=== PATIENT | male | born 1990 ===

== ENCOUNTER 2019-05-14 13:19 | Observation (INO) | payer SELFPAY ==
[2019-05-14] MEDS ORDERED: Nitroglycerin 0.4 MG TAB (25 Tab Bottle) ONE (13:55)
[2019-05-14] MEDS: Morphine 4 MG/ML VIAL ONE (13:57)
[2019-05-14] MEDS ORDERED: Metoprolol Tartrate 5 MG/5 ML VIAL ONE (14:11)
[2019-05-14] MEDS ORDERED: Morphine 2 MG/ML SYRINGE SLOW IVP SCH (14:15)
[2019-05-14] MEDS ORDERED: Iopamidol-370 76% 500 ML 1 ML ONE (14:29)
[2019-05-14] MEDS ORDERED: Labetalol HCl 100 MG/20 ML VIAL SLOW IVP SCH (14:30)
[2019-05-14 15:37] VITALS: BMI 27.5
[2019-05-14] MEDS ORDERED: Carvedilol 25 MG TAB PO SCH (16:45)
[2019-05-14] MEDS ORDERED: Ketorolac Tromethamine 30 MG/ML VIAL IVP SCH ×2 (17:00→18:30)
[2019-05-14] MEDS ORDERED: Ibuprofen 800 MG TAB PO SCH (18:30)
[2019-05-14 18:52] LABS: Amphetamine Not Detected (NotDetected); Barbiturates Screen Not Detected (NotDetected); Benzodiazepine Screen Not Detected (NotDetected); Cocaine Metabolite Screen Not Detected (NotDetected); Medtox Control Line Valid? VALID (VALID); Medtox Reader # READER 1; Methadone Not Detected (NotDetected); Methamphetamine Not Detected (NotDetected); Opiate Screen Detected (NotDetected); Oxycodone Screen Not Detected (NotDetected); Phencyclidine (PCP) Not Detected (NotDetected); THC/Cannabinoid Screen Not Detected (NotDetected); Tricyclic Screen Not Detected (NotDetected)
--- NOTE | 2019-05-14 18:58 | CON ---
DATE OF CONSULTATION: REASON FOR CONSULTATION: Chest pain and abnormal EKG. HISTORY OF PRESENT ILLNESS: Mr. Dalton is a pleasant 29-year-old gentleman with no significant past medical history who recently states he developed chest pain. This began at 8:00 this morning. It has been unremitting. The pain is worse with sitting up, taking a deep breath, moving to his left side. No other ameliorating, exacerbating, or precipitating factors present. His EKG was felt to be abnormal, but more consistent with repolarization changes. HOME MEDICATIONS: Naprosyn. ALLERGIES: NONE. REVIEW OF SYSTEMS: Ten-point review of systems reviewed, as above, otherwise negative. PHYSICAL EXAMINATION: GENERAL: Patient is a pleasant male who is in no acute distress. The patient appears their stated age. VITAL SIGNS: Blood pressure 169/99, pulse 84, respiratory rate 20. NEUROLOGIC: The patient is alert and oriented x3 with no focal neurologic deficits. HEENT: Sclerae without icterus. Mouth has moist mucous membranes with normal pallor. NECK: No JVD. Carotid upstroke brisk. No bruits bilaterally. LUNGS: Clear to auscultation with unlabored respirations. BACK: No scoliosis or kyphosis. CARDIAC: Regular rate and rhythm with normal S1 and S2. No S3 or S4 noted. No significant rubs, murmurs, thrills, or gallops noted throughout the precordium. PMI is not displaced. There is no parasternal heave. ABDOMEN: Soft, nontender, nondistended. No peritoneal signs present. No hepatosplenomegaly. No abnormal striae. EXTREMITIES: 2+ femoral and 2+ dorsalis pedis pulses. No cyanosis, clubbing, or edema. SKIN: No gross abnormalities. PERTINENT LABORATORY DATA: Troponin negative. EKG shows normal sinus rhythm with repolarization changes. IMPRESSION: Chest pain. RECOMMENDATIONS: Mr. Dalton's symptoms are likely musculoskeletal versus pleuritic in nature. We will give one dose of Toradol. We will also add ibuprofen and Pepcid. His EKG is consistent with repolarization changes and not felt to be consistent with acute ST-T wave changes. We will continue to get serial CKs and troponins. His pain started this morning with his last troponin at 2:00 this afternoon and was negative. We will also recommend echo with Doppler. Job ID: [id number]
[2019-05-14 19:04] LABS: Troponin I Less than 0.010 ng/mL (< 0.028)
--- NOTE | 2019-05-14 20:17 | CT ---
CT arteriogram chest with IV contrast and 3-D imaging HISTORY: Chest pain. FINDINGS: There is good contrast opacification of the pulmonary arteries and thoracic aorta with norm al branching of the great vessels at the aortic arch. Centered at the aorticopulmonary window of the left upper anterior mediastinum is a lobular, somewhat heterogeneous soft tissue density mass liz t abuts the right side of the pulmonary outflow trunk. The mass measures up to 4.6 cm length by 5.8 cm depth by 4.9 cm width. No mediastinal adenopathy is seen elsewhere. There is mild atelectasis at t he dependent portion of each lung. No pleural fluid or pneumothorax. IMPRESSION: Large left upper anterior mediastinal mass. Thymic tumor versus germ cell tumor versus ad enopathy are the primary considerations. Lesion would be amenable to percutaneous CT-guided biopsy if needed. No CT evidence of pulmonary embolus.
[2019-05-14] MEDS: Carvedilol 25 MG TAB PO SCH (20:38)
[2019-05-14] MEDS: Famotidine 20 MG TAB PO SCH (20:38)
[2019-05-14] MEDS ORDERED: Ibuprofen 800 MG TAB PO PRN (20:56)
[2019-05-14] MEDS: traMADol HCl 50 MG TAB PO PRN (21:26)
[2019-05-14] MEDS: Ketorolac Tromethamine 30 MG/ML VIAL IVP SCH (23:27)
[2019-05-15] MEDS: Ketorolac Tromethamine 30 MG/ML VIAL IVP SCH ×3 (06:14→17:49)
--- NOTE | 2019-05-15 07:43 | HP ---
PRIMARY CARE PHYSICIAN: Unknown. CHIEF COMPLAINT: Chest pain, transfer from [facility] ER. HISTORY OF PRESENT ILLNESS: This is a 29-year-old Faroese speaking male with reported history of hypertension, but on naproxen, who presented to [facility] ER for complains of chest pain that started at 5 a.m. He reports awakening this morning with left-sided headaches and left-sided facial pain that traverse into the chest described as a severe pain across his left chest associated with difficulty breathing prompting evaluation. The patient's coworker is at bedside and helps provide history. In [facility] ER, the patient was notably hypertensive and initial chest x-ray was negative. He required 8 mg of IV morphine, 30 mg of IV Toradol , GI cocktail, oral aspirin for temporizing pain relief. Initial cardiac biomarker was negative, but 12-lead EKG did suggest ST changes in the anterior leads considering for possible Brugada changes and the patient was transferred to [facility] for further evaluation. En route, he required additional nitroglycerin sublingual tablets for pain control. Upon arrival to the bed, he complained of 10/10 pain, aggravated by movement and was administered 10 mg IV morphine and repeat 12-lead EKG stat was obtained, suggesting normal sinus rhythm with LVH changes and ST elevation changes noted in the anterior leads. Machine read as early repolarization versus pericarditis versus possible injury changes. Most recent blood pressure is 180/110 and 10 mg of IV labetalol has been ordered. At bedside, the patient reports his pain is always there, but aggravated with movement. He notes similar complains several years ago requiring hospitalization in [place], [place], four days duration, but did not sound like any cardiac risk stratification was done. The patient denies any premature family history of sudden cardiac or atherosclerotic cardiovascular disease. He denies any illicit drug use, but has admitted tobacco and alcohol use. He offers no recent illness or exposure to sick contacts. He denies any rash or vesicular eruption of affected area. 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 PAST MEDICAL HISTORY: Reportedly hypertension, but on naproxen. PAST SURGICAL HISTORY: None reported. SOCIAL HISTORY: The patient works as a marine welder. He admits to tobacco and alcohol use. He denies any illicit drug use. ALLERGIES: NONE REPORTED. REVIEW OF SYSTEMS: Pertinent positives per HPI. Remainder of review of systems otherwise negative. MEDICATIONS: Home medications were reviewed as per admission medication reconciliation. FAMILY HISTORY: The patient denies any current medical comorbidities in family members. PHYSICAL EXAMINATION: VITAL SIGNS: Blood pressure 180/110, pulse 79 and sinus rhythm, respirations approximately 14 to 16, and T-max afebrile. APPEARANCE: Young thin male, who is awake, alert, and oriented in mild-to- moderate distress when moving with eyes closed. HEENT: Normocephalic and atraumatic. No facial asymmetry. Mucous membranes are moist. Extraocular muscles are intact. CARDIOVASCULAR SYSTEM: S1 and S2. Regular rate and rhythm. No harsh murmurs noted. There is reproducible tenderness along the left chest precordial extending into left axilla with no obvious skin lesions or deformities or rashes noted. LUNGS: Bilateral equal air entry, clear to auscultation. Symmetrical chest expansion. No appreciable wheezing or rales. ABDOMEN: Soft, nontender, and nondistended. EXTREMITIES: No appreciable lower extremity edema. SKIN: Warm to touch without rashes, pallor, or abrasion. NEUROLOGIC: No facial asymmetrynotes. Smile is symmetrical as well as facial expression. No drift in the upper extremities. 2+ hand security nurse intact and sensation intact throughout. Gait was not assessed. LABORATORY DATA: Labs at outside facility reviewed. WBC 8.4, H and H 16.1 and 48.9, and platelets 228. Sodium 138, potassium 3.3, chloride 110, bicarb 26, glucose 122, BUN and creatinine 10/0.6. LFTs are unremarkable. Troponin I negative x1. IMAGING: Chest x-ray from outside facility, 2-view revealed no acute abnormalities. A 12-lead EKG done at outside facility revealed, reveals normal sinus rhythm, normoactive, ST changes noted in leads V1 and V2. Repeat 12-lead EKG done at bedside stat reviewed reveals normal sinus rhythm, normal axis, ST changes in V2 and V3 with elevation, machine read as consideration for early repolarization versus pericarditis versus injury . ASSESSMENT AND PLAN: 1. Chest pain, rule out acute coronary artery syndrome. The patient will be admitted as observation status and placed on a telemonitoring monitoring. He is otherwise young with no apparent cardiovascular risk factors and likely low- risk for cardiac risk stratification, but with abnormal 12-lead EKG changes. We will continue to monitor. We will obtain serial cardiac biomarkers. We will obtain transthoracic echocardiogram. [employer] Builder on-call was consulted and case personally discussed with him. We will monitor for optimal blood pressure control. If ongoing complaints of chest pain, we will need to obtain D-dimer to evaluate for venous thromboembolism as well as consideration for CTA chest for vascular evaluation. 2. Hypertension, uncontrolled. Possibly contributory due to pain. We will administer one time dose of IV labetalol and monitored for symptomatic relief. Pain will also need to be addressed, which may be contributing to the blood pressure. 3. Nicotine dependence. The patient will require cessation counseling. 4. Hypokalemia. We will replete. Deep venous thrombosis prophylaxis, low-risk, and ambulation. Disposition: The patient will be admitted to observation status, anticipate greater than 24-hour stay. Job ID: [id number] MTDD
--- NOTE | 2019-05-15 08:43 | CON ---
DATE OF CONSULTATION: 05/15/2019 SUBJECTIVE: Mr. Dalton feels better this morning. He has less chest pain. Blood pressure remains markedly elevated. Recent CT scan did suggest a mass present in the left upper anterior mediastinal region. Dynamic tumor versus germ cell tumor versus adenopathy in the differential diagnosis. This may likely be the cause of his current pain. PHYSICAL EXAMINATION: GENERAL: Patient is a pleasant gentleman who is in no acute distress. The patient appears their stated age. VITAL SIGNS: Blood pressure 183/111, pulse 86, and temperature 97.5. NEUROLOGIC: The patient is alert and oriented x3 with no focal neurologic deficits. HEENT: Sclerae without icterus. Mouth has moist mucous membranes with normal pallor. NECK: No JVD. Carotid upstroke brisk. No bruits bilaterally. LUNGS: Clear to auscultation with unlabored respirations. BACK: No scoliosis or kyphosis. CARDIAC: Regular rate and rhythm with normal S1 and S2. No S3 or S4 noted. No significant rubs, murmurs, thrills, or gallops noted throughout the precordium. PMI is not displaced. There is no parasternal heave. ABDOMEN: Soft, nontender, nondistended. No peritoneal signs present. No hepatosplenomegaly. No abnormal striae. EXTREMITIES: 2+ femoral and 2+ dorsalis pedis pulses. No cyanosis, clubbing, or edema. SKIN: No gross abnormalities. PERTINENT LABORATORY DATA: Troponin negative. No labs have been drawn. IMPRESSION: 1. Chest wall pain. 2. CT scan suggesting mass in the left upper chest region. 3. Hypertension. RECOMMENDATIONS: 1. Continue carvedilol 25 mg p.o. b.i.d. 2. Add lisinopril 10 mg q.a.m. 3. Add Norvasc 5 mg q.a.m. 4. If blood pressure remains elevated, may seek a secondary cause and may or may not be related to a mediastinal mass. 5. Consult with CV Surgery. Job ID: [id number]
[2019-05-15] MEDS ORDERED: Lisinopril 5 MG TAB PO SCH (09:00)
[2019-05-15] MEDS ORDERED: Hydrochlorothiazide 25 MG TAB PO SCH (09:00)
[2019-05-15] MEDS ORDERED: Lisinopril 10 MG TAB PO SCH (09:00)
[2019-05-15] MEDS: Famotidine 20 MG TAB PO SCH (09:02)
[2019-05-15] MEDS: Carvedilol 25 MG TAB PO SCH (09:03)
--- NOTE | 2019-05-15 09:40 | PDOC.HOSPP ---
- Subjective Encounter Date: 05/15/19 Encounter Time: 09:38 Subjective: cc: f/u for chest pain subjective: patient seen this morning. left sided chest pain improved but still present in left chest. noted abnormal CTA with left upper anterior mediastinal mass. patient reports this is known from prior 08/2017 hospitalization [facility] hospitalization and was apparently advised surgical intervention at that time and declined. has been chest pain-free since that time until now. lives in [place] and has previously applied for [facility] [employer] benefits but has been rejected. denies family history of malignancy. denies scrotal or testicular problems or lumps. friend at bedside. discussed with binder stripper machine who has consulted CT surgeryteam noted unremarkable CBC and unremarkable differential on admission. - Objective Vital Signs & Weight: Vital Signs (12 hours) Temp Pulse Resp BP Pulse Ox 05/15/19 08:08 96 05/15/19 07:52 97.5 F L 86 183/111 H 96 05/15/19 03:53 98.1 F 88 16 165/108 H 95 05/14/19 23:31 98.4 F 80 16 174/108 H 95 Weight Weight 170 lb 6.4 oz I&O: 05/14/19 05/15/19 05/16/19 06:59 06:59 06:59 Intake Total 674 Output Total 100 Balance 574 Hospitalist ROS - Review of Systems Other: pertinent positive per SUBJECTIVE; remainder ROS negative - Medication Medications: Active Medications Generic Name Dose Route Start Last Admin Trade Name Freq PRN Reason Stop Dose Admin Carvedilol 25 mg 05/14/19 21:00 05/15/19 09:03 Coreg PO 25 mg BID INESSA Administration Famotidine 20 mg 05/14/19 21:00 05/15/19 09:02 Pepcid PO 20 mg BID INESSA Administration Hydrochlorothiazide 25 mg 05/15/19 09:00 05/15/19 09:03 Hydrochlorothiazide PO 25 mg DAILY INESSA Administration Ketorolac Tromethamine 15 mg 05/14/19 23:59 05/15/19 06:14 Toradol IVP 05/19/19 17:59 15 mg Q6HR INESSA Administration Lisinopril 10 mg 05/15/19 09:00 05/15/19 09:03 Zestril PO 10 mg DAILY INESSA Administration Sodium Chloride 10 ml 05/15/19 09:00 05/15/19 09:07 Flush - Normal Saline IVF 10 ml Q12HR INESSA Administration Tramadol HCl 50 mg 05/14/19 21:06 05/14/19 21:26 Ultram PO 50 mg Q6H PRN Administration BREAKTHRU PAIN - Exam General Appearance: NAD ( deferred.), awake alert Eye: PERRL, anicteric sclera ENT: normocephalic atraumatic, no oropharyngeal lesions, moist mucosa Neck: supple Heart: RRR, no murmur Heart - other findings: left anterior and lateral chest wall tenderness to palpatoin Respiratory: CTAB, no wheezes, no rales, no ronchi, normal chest expansion, no tachypnea Gastrointestinal: soft, non-tender, non-distended, no guarding Extremities: no cyanosis, no edema Skin: normal turgor, no lesions Skin - other findings: tattooing of skin noted Musculoskeletal: normal tone, normal strength, no muscle wasting Psychiatric: normal affect, normal behavior, A&O x 3, oriented to person, oriented to place, oriented to time Hosp A/P - Plan chest pain due to left anterior mediastinal mass. patient reports this mass is known from 08/2017 hospitalization from [facility] admission and was advised surgical intervention at that time. specifics unclear and records requested from outside facility. CTA chest 05/14/19 noted with dimensions 4.6x5.8x4.9 centimeters. patient denies problems. pain tolerable with IV toradol. await CT surgery evaluation. tnI negative, TTE done and results pending. discussed with binder stripper machine. dispo: unclear. await CT surgery evaluation for known mediastinal mass
[2019-05-15 15:36] VITALS: BP 154/97; TEMP 97.8
[2019-05-15] MEDS: traMADol HCl 50 MG TAB PO PRN (18:07)
--- NOTE | 2019-05-18 16:12 | EKG ---
Test Reason : C/P Blood Pressure : / mmHG Vent. Rate : 075 BPM Atrial Rate : 075 BPM P-R Int : 178 ms QRS Dur : 090 ms QT Int : 384 ms P-R-T Axes : 058 033 077 degrees QTc Int : 428 ms Normal sinus rhythm with sinus arrhythmia Voltage criteria for left ventricular hypertrophy ST elevation, consider early repolarization, pericarditis, or injury Nonspecific ST and T wave abnormality Abnormal ECG No previous ECGs available Confirmed by DR. Radha DIALLO ([id number]) on 05/18/2019 4:12:08 PM Referred By: FRANK Confirmed By:DR. Radha DIALLO
[2019-05-19] MEDS ORDERED: Ibuprofen 800 MG TAB PO PRN (23:59)
== END 2019-05-15 19:21 | disposition home or self-care (01) ==
LOC: INTOOBSV 13:19 → 2SW 13:19
PROVIDERS: ADMIT Internal Medicine; ATTEND Internal Medicine
DX: J98.59 Other diseases of mediastinum, not elsewhere classified (principal); I10 Essential (primary) hypertension; F17.200 Nicotine dependence, unspecified, uncomplicated; E87.6 Hypokalemia; R94.31 Abnormal electrocardiogram [ECG] [EKG]
CPT/HCPCS: 36415; 71275; 80306; 84484; 93005; 93010; 93306; 94760; 96374; 96375; 96376; G0378; J1885; J2270; Q9967